=== PATIENT | female | born 2000 | race Caucasian/White ===

== ENCOUNTER 2021-01-09 02:31 | Emergency (ER) | payer BC ==
[~2021-01-09] VITALS: Ht 172.7 cm; Wt 52.3 kg
[~2021-01-09 02:31] MED LIST: SYNTHROID 0.0.025 MG PO
[2021-01-09 02:32] VITALS: TEMP 98
[2021-01-09] MEDS ORDERED: LEVOXYL0.075 MG PO (03:00)
[2021-01-09] MEDS ORDERED: CYTOMEL 5MC5 MCG/TAB PO (03:01)
[2021-01-09 06:53] VITALS: BP 114/82; PULSE 84
[2021-01-09] MEDS ORDERED: LEXAPRO 5MG5 MG (07:20)
== END 2021-01-09 06:53 | disposition home or self-care (01) ==
LOC: COL.ER 02:31
DX: F10.129 Alcohol abuse with intoxication, unspecified (principal); E03.9 Hypothyroidism, unspecified; Z79.890 Hormone replacement therapy
CPT/HCPCS: J2405

== ENCOUNTER 2022-02-10 08:58 | Emergency (ER) | payer BC ==
[~2022-02-10] VITALS: Ht 162.6 cm; Wt 59.1 kg
[~2022-02-10 08:58] MED LIST changes: +CYTOMEL 5MC5 MCG/TAB PO; +LEVOXYL0.075 MG PO; +LEXAPRO 5MG5 MG
[2022-02-10 09:24] VITALS: TEMP 98.3
[2022-02-10] MEDS ORDERED: TRI-LO-MARZIA1 EACH PO (09:25)
[2022-02-10 09:34] LABS: COLLECTION METHOD CLEAN CATCH
[2022-02-10 09:42] LABS: MUCOUS Present (NOT PRESENT); PH 6 (5-8); URINE APPEARANCE Clear (CLEAR/HAZY); URINE BACTERIA None Seen /hpf (NONE SEEN); URINE BILIRUBIN Negative (NEGATIVE); URINE BLOOD 1+ (NEGATIVE); URINE COLOR Straw (YELLOW); URINE GLUCOSE Negative (NEGATIVE); URINE KETONE Negative (NEGATIVE); URINE LEUKOCYTE ESTERASE Negative (NEGATIVE); URINE NITRATE Negative (NEGATIVE); URINE PROTEIN(semi-quant) Negative (NEGATIVE); URINE RBC 0-2 /hpf (0-2); URINE UROBILINOGEN Negative (NEGATIVE)
[2022-02-10 10:06] LABS: BASO % 0.6 % (0.0-2.0); EOS # 0.1 K/mm3 (0.0-0.7); EOS % 2.6 % (0.0-4.0); GRAN # 2.9 K/mm3 (1.4-6.5); GRAN % 62.3 % (42.2-75.2); HEMATOCRIT 38.6 % (37.0-47.0); HEMOGLOBIN 11.9 g/dl (12.5-16.0); LYMPH # 1.3 K/mm3 (1.2-3.4); LYMPH % 28.1 % (20.0-51.0); MEAN CELL VOLUME 82 fl (80.0-100.0); MEAN CORPUSCULAR HEMOGLOBIN 25 pg (27-31); MEAN CORPUSCULAR HGB CONC 31 g/dl (33.0-37.0); MEAN PLATELET VOLUME 10.7 fl (7.4-10.4); MONO # 0.3 K/mm3 (0.1-0.6); MONO % 6.2 % (1.7-9.3); PLATELET COUNT 257 K/mm3 (130-400)
[2022-02-10 10:25] LABS: ALBUMIN 3.7 gm/dL (3.5-5.0); BILIRUBIN,TOTAL 0.3 mg/dL (0.2-1.2); C-REACTIVE PROTEIN 0.41 mg/dL (0.00-0.50); CREATININE, serum 0.81 mg/dL (0.57-1.11); POTASSIUM 3.8 mmol/L (3.5-4.5); TOTAL PROTEIN 7.9 gm/dL (6.2-8.1)
[2022-02-10 14:03] VITALS: BP 112/80; PULSE 64
== END 2022-02-10 14:03 | disposition home or self-care (01) ==
LOC: COL.ER 08:58
PROVIDERS: Emergency Medicine
DX: N83.201 Unspecified ovarian cyst, right side (principal); Z32.02 Encounter for pregnancy test, result negative
CPT/HCPCS: J7030; Q9967